=== PATIENT | male | born 1975 | race Caucasian/White ===

== ENCOUNTER 2025-06-03 09:01 | Emergency (ER) | payer OTHER, SELFPAY ==
--- OUTSIDE RECORDS SUMMARY | 2005-05-04 03:20 | XMS_ITS | Continuity of Care Document ---
Author Organization [facility] Address [address] [place] [address] Care Team Providers Care Organ Teacher Name Role Phone Gerardo Anne MD Unavailable [...] Providers Copied on Encounter [facility], [address] [place] [address], [facility], [facility] [place] No Information 200 5 Omid Carrillo. [address] [place] [address], [facility], . tel:[phone] Referring Provider: Ran Solomon, [address] [place] [address], [id number]. tel:[phone] 1930 [facility], [address] [place] [address], [facility], [facility] [place] No Information 5200 5 Juanito Tong. [address] [place] [address], [id number], . tel:[phone] Family History Family Member Type Diagnosis Age At Onset Father Problem (finding) Myocardial infarction 5 0 Other Problem (finding) coronary arterioscleros is Payers Payer name Insurance type Covered republican ID Authoriza tion(s) BS PPO BL [id number] Social History Type Description Quantity Date Captured [...]
[2025-06-03 09:05] VITALS: BP 133/87; PULSE 92; RESP 18; TEMP 36.8; O2SAT 91; BMI 31.5
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
[2025-06-03] MEDS: tetanus-dipt-pertussis 0.5 mL SDV IM (09:34)
[2025-06-03] MEDS: ceFAZolin 1,000 mg SDV 1000 MG IVP (09:36)
[2025-06-03 09:37] VITALS: BP 133/87; PULSE 94; RESP 16; O2SAT 96
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
[2025-06-03 10:40] VITALS: BP 131/80; PULSE 87; O2SAT 96
== END 2025-06-03 10:44 | disposition home or self-care (01) ==
PROVIDERS: Emergency Provider Family Medicine
DX: S81.831A Puncture wound without foreign body, right lower leg, initial encounter (principal); W32.0XXA Accidental handgun discharge, initial encounter
CPT/HCPCS: 73560; 90715; 96374; 99284; J0690

== ENCOUNTER 2025-08-09 09:35 | Emergency (ER) | payer OTHER, SELFPAY ==
[2025-08-09 09:50] VITALS: BP 130/95; PULSE 94; RESP 17; TEMP 36.9; O2SAT 97; BMI 31.5
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
[2025-08-09 11:07] VITALS: RESP 16; O2SAT 96
[2025-08-09] MEDS: morphine 4 mg/mL SDV 1 mL IM (11:07)
[2025-08-09] MEDS: ondansetron 2 mg/ML SDV 2 mL 4 MG IM (11:07)
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
[2025-08-09] MEDS: lidocaine 2% INJ 20 mL INJECTION (11:32)
== END 2025-08-09 12:03 | disposition home or self-care (01) ==
PROVIDERS: Emergency Provider Physician Assistant
DX: S42.202A Unspecified fracture of upper end of left humerus, initial encounter for closed fracture (principal); S02.842A Fracture of lateral orbital wall, left side, initial encounter for closed fracture; S01.112A Laceration without foreign body of left eyelid and periocular area, initial encounter; V27.09XA Other motorcycle driver injured in collision with fixed or stationary object in nontraffic accident, initial encounter
CPT/HCPCS: 12013; 70450; 70486; 72125; 73030; 96372; 99284; J2270; J2405; J9999

== ENCOUNTER 2025-08-25 16:16 | Inpatient (IN) | payer OTHER, SELFPAY ==
--- OUTSIDE RECORDS SUMMARY | 2005-05-04 03:20 | XMS_ITS | Continuity of Care Document ---
Author Organization [facility] Address [address] [place] [address] Care Team Providers Care Fundraising Coordinator Name Role Phone Gerardo Anne MD Unavailable Unavailable Allergies, Adverse Reactions, Alerts Substance Reaction Status Criticality pollen extracts sneezing Active No Informati on Medications Medication Instructions Dosage Effective Dates (start - stop) Status Comments aspirin 81 mg Tab Take one tablet by m outh daily - Active multivitamin Tab Take one tablet by m outh every morning - Active Advance Directives Directive Yes / No Effective Date File Name No Information Encounters Encounter Description Practice Location Reason(s) For Visit Diagnoses Date Provider Providers Copied on Encounter [facility], [address] [place] [address], [facility], [facility] [place] No Information 200 5 Omid Carrillo. [address] [place] [address], [facility], . tel:[phone] Referring Provider: Ran Solomon, [address] [place] [address], [id number]. tel:[phone] [facility], [address] [place] [address], [facility], [facility] [place] No Information 200 5 Juanito Tong. [address] [place] [address], [id number], . tel:[phone] Family History Family Member Type Diagnosis Age At Onset Father Problem (finding) Myocardial infarction 5 0 Other Problem (finding) coronary arterioscleros is Payers Payer name Insurance type Covered libertarian ID Authoriza tion(s) BS PPO BL [id number] Social History Type Description Quantity Date Captured Comments Sex Male Smoking Status No Information Chief Complaint And Reason For Visit No Information Reason For Referral Reason For Referral No Information History Of Present Illness Encounter Date Complaint History Of Prese nt Illness No Information Functional Status Date Functional Assessmen t No Information Instructions Date Instruction Additional Infor mation No Information Assessments Type Assessment Date No Information Patient Care Teams Name Effective Dates (start - stop) Status Members No Information
[2025-08-25 16:25] VITALS: BMI 30.1
[2025-08-25 16:29] VITALS: BP 128/85; PULSE 112; RESP 18; TEMP 36.9; O2SAT 93
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
[2025-08-25 16:49] VITALS: O2SAT 99
[2025-08-25 16:49] LABS: Hematocrit 42.1 % (37-53); Hemoglobin 13.80 g/dL (11.27-16.99); Mean Corpuscular HGB Conc 32.8 g/dL (30-55); Mean Corpuscular Hemoglobin 29.8 pg (27-33); Mean Corpuscular Volume 90.9 fl (82-101); Nucleated Red Blood Cells % 0 %; Platelet Count 466 10^3/cmm (157-399); Red Blood Count 4.63 10^6/uL (3.85-5.65); White Blood Count 10.85 10^3/uL (3.29-11.43)
[2025-08-25 17:04] LABS: PCP Screen Urine Negative (Negative)
[2025-08-25 17:09] LABS: Alanine Aminotransferase 19 U/L (0-41); Albumin Level 3.9 g/dL (3.5-5.2); Alkaline Phosphatase 108 U/L (40-130); Anion Gap 18.2 (5-19); Aspartate Amino Transferase 15 U/L (0-40); Blood Urea Nitrogen 11 mg/dL (6-20); Calcium 9.0 mg/dL (8.5-10.5); Carbon Dioxide 21 mmol/L (22-29); Chloride 103 mmol/L (98-107); Creatinine Clr Calc Pharmacy 113.7522; Globulin 4.0 g/dL (1.3-4.6); Glucose 108 mg/dL (65-115); Osmolality Calculated 286 mOsm/kg (285-295); Potassium 4.2 mmol/L (3.5-5.1); Sodium 138 mmol/L (136-145); Total Protein 7.9 g/dL (6.6-8.7)
[2025-08-25 17:11] LABS: Acetaminophen < 5.0 ug/mL (10-30); Alcohol Level < 10 mg/dL (0-10); Salicylate < 0.3 mg/dL (3-10)
--- NOTE | 2025-08-25 17:35 | PC.NURSE ---
96 hour hold rights read to patient in completion. Patient verbalized understanding.
[2025-08-25 19:30] VITALS: BP 148/79; PULSE 82; RESP 18; TEMP 36.8; O2SAT 97
--- NOTE | 2025-08-25 19:53 | PC.NURSE ---
pt q15's pt on unit at 1905. rounds done appropriately from this time until they were charted at 1944.
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
--- NOTE | 2025-08-25 22:32 | PC.NURSE ---
Pt has a black eye on the left side followed by a sore shoulder ad an abrasion on his left inner thy. 

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
[2025-08-26 06:00] VITALS: BP 128/89; PULSE 78; RESP 17; TEMP 36.9; O2SAT 99
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
[2025-08-26 13:55] VITALS: BP 126/85; PULSE 82; RESP 15; TEMP 37.1; O2SAT 96
--- NOTE | 2025-08-26 16:42 | PC.NURSE ---
Signee had asked an ER nurse in report if pt. was on dialysis. Nurse said she was not aware of it. Signee asked pt. today if he had ever been on dialysis, or if anyone had ever talked to him saying he may need dialysis and pt. stated no he had never been on dialysis or been informed he may need dialysis.
[2025-08-26 20:24] VITALS: BP 119/88; PULSE 105; RESP 18; TEMP 36.7; O2SAT 95
[2025-08-27 06:00] VITALS: BP 132/91; PULSE 78; RESP 16; TEMP 36.3; O2SAT 93
--- NOTE | 2025-08-27 08:29 | P.NPUPN_ITS ---
Subjective NPU 2 Subjective: Patient presented today reporting that nothing is changed. He discussed the fact that he might allow us to speak to one of his sisters but was very clear that he did not want to interrupt anyone. We discussed that his sister would likely know him better than since she can give us some feedback on what she recalls from their lifetime and how this fits into his presentation with people reporting he has schizophrenia but him saying that that is incorrect. He brought up his sisters but he seemed fairly resistant to having anyone talk to them. We discussed the importance of us understanding what his story is and connecting with someone that may be able to give us some narrative of how he got here. He continues to report grandiose persecutory and paranoid thoughts per staff reports and direct observation. He is resistant to a trial of medication but we discussed that a medication like Abilify or Invega might be helpful to his challenges. Mental Status Exam 2 MSE Comments: This is an overweight versus obese white male in the hospital scrubs with limited grooming and poor eye contact. No abnormal movements except for mild psychomotor agitation. Cooperative with exam in mild to moderate distress. Speech was increased rate but not pressured normal volume. Mood described as fine/good but I do not believe I should be or need to be here, affect was mostly euthymic and slightly energetic. Thought process linear to organized. Thought content: Patient did not report suicidal or homicidal ideation, there were no delusions reported but he did appear to have paranoid, persecutory and grandiose delusions, he did not report auditory or visual hallucinations. Attention and concentration were intact and memory was unreliable but none were formally tested. He is alert and oriented x person and place. Insight, judgment and impulse control are impaired. Vitals/I&O/Wt Last Vital Signs Temp 97.4 F L 08/27/25 06:00 Pulse 78 08/27/25 06:00 Resp 16 08/27/25 06:00 BP 132/91 08/27/25 06:00 Pulse Ox 93 08/27/25 06:00 O2 Del Method Room Air 08/27/25 06:00 08/26/25 08/27/25 08/27/25 22:59 06:59 14:59 Intake Total 120 / 360 Balance 120 / 360 Weight last 48 hrs Weight 95.254 kg Data NPU 08/25/25 16:36 08/25/25 16:36 A&P Assessment and plan 1. Acute psychosis: 2. History of schizophrenia: 3. Closed fracture of left proximal humerus: 4. Paranoia: Plan: This is a 49-year-old white male who presents unknown to [facility] psychiatry and reports his only mental health treatment for his account was [facility] the [facility] and he did not feel that this was accurate. He was hospitalized on a 96 hour hold secondary to reports of psychosis and paranoia and concern for him trying to procure a gun. 1. Consider antipsychotic with long-acting injectable. Patient currently not feeling that he is in need of any psychiatric intervention for medication. 2. Encourage individual, group and milieu therapies. 3. Continue every 15 minute checks for safety. 4. Obtain collateral information. 5. Observe against the backdrop of the 96-hour hold. PDMP PDMP Reviewed: Not Reviewed Involuntary Hold Information 2 Hold Status: Legal Status: 96 Hour Hold Date/Time Hold Expires: 08/30/2025 @ 0001 Attestations NPU 2 Medical Necessity Statement*: Inpatient hospitalization is medically necessary and the clinically appropriate intervention at this time. We will monitor/initiate medications and make changes as indicated. Likely length of stay 7-10 days. Coding Level of Care Code Acute Code for Chg Fwd Diagnoses Acute psychosis F23 History of schizophrenia Z86.59 Closed fracture of left proximal humerus S42.A Paranoia F22
[2025-08-27 13:53] VITALS: BP 116/79; PULSE 102; RESP 18; TEMP 36.8; O2SAT 94
[2025-08-27 19:43] VITALS: BP 118/78; PULSE 108; RESP 17; TEMP 36.8; O2SAT 96
[2025-08-28 06:00] VITALS: BP 132/88; PULSE 105; RESP 16; TEMP 36.6; O2SAT 96
--- NOTE | 2025-08-28 09:01 | NUR.SHIFT ---
Pt states that he slept alright last night. When I asked him about anxiety he states that it's nothing he can't deal with and depression he states not much No reports of SI/Hi or hallucinations. No pain reported. He is sitting in the day room writing.
[2025-08-28 14:00] VITALS: BP 128/86; PULSE 92; RESP 17; TEMP 36.7; O2SAT 93
[2025-08-28 14:24] LABS: RPR w(Moniotor) w/REFL Titer REACTIVE (NON-REACTIVE)
--- NOTE | 2025-08-28 18:29 | W.PM.NPUPNS ---
Subjective NPU Subjective: Patient presented today continuing to report that he is fine and there are no issues. He talked about his EMMANUEL and that is something that he has but that is not strange. He continued to deny any issues being of concern and denied any need for medication. We discussed the fact that we could not come to some conclusion or get some collateral information from his sister that we would likely need to keep him longer for which he was not happy with. We discussed concerns that some of the things he is saying may represent some kind of delusion which he said was not true. He denied any need for medication. Mental Status Exam MSE Comments: This is an overweight versus obese white male in the hospital scrubs with limited grooming and poor eye contact. No abnormal movements except for mild psychomotor agitation. Cooperative with exam in mild to moderate distress. Speech was increased rate but not pressured normal volume. Mood described as fine/good but I do not believe I should be or need to be here, affect was mostly euthymic and slightly energetic. Thought process linear to organized. Thought content: Patient did not report suicidal or homicidal ideation, there were no delusions reported but he did appear to have paranoid, persecutory and grandiose delusions, he did not report auditory or visual hallucinations. Attention and concentration were intact and memory was unreliable but none were formally tested. He is alert and oriented x person and place. Insight, judgment and impulse control are impaired. Vitals/I&O/Wt Last Vital Signs Temp 98.1 F 08/28/25 14:00 Pulse 92 08/28/25 14:00 Resp 17 08/28/25 14:00 BP 128/86 08/28/25 14:00 Pulse Ox 93 08/28/25 14:00 O2 Del Method Room Air 08/28/25 06:00 Data NPU 08/25/25 16:36 08/25/25 16:36 A&P Assessment and plan 1. Acute psychosis: 2. History of schizophrenia: 3. Closed fracture of left proximal humerus: 4. Paranoia: Plan: This is a 49-year-old white male who presents unknown to [facility] psychiatry and reports his only mental health treatment for his account was [facility] the [facility] and he did not feel that this was accurate. He was hospitalized on a 96 hour hold secondary to reports of psychosis and paranoia and concern for him trying to procure a gun. 1. Consider antipsychotic with long-acting injectable. Patient currently not feeling that he is in need of any psychiatric intervention for medication. 2. Encourage individual, group and milieu therapies. 3. Continue every 15 minute checks for safety. 4. Obtain collateral information. 5. Observe against the backdrop of the 96-hour hold. File for 21 day hold. PDMP PDMP Reviewed: Not Reviewed Involuntary Hold Information Hold Status: Legal Status: 96 Hour Hold Date/Time Hold Expires: 08/30/2025 @ 0001 Attestations NPU Medical Necessity Statement*: Inpatient hospitalization is medically necessary and the clinically appropriate intervention at this time. We will monitor/initiate medications and make changes as indicated. Likely length of stay 7-10 days. Coding Level of Care Code Acute Code for Chg Fwd Diagnoses Acute psychosis F23 History of schizophrenia Z86.59 Closed fracture of left proximal humerus S42A Paranoia F22
[2025-08-28 20:07] VITALS: BP 135/89; PULSE 91; RESP 18; TEMP 36.5; O2SAT 95
[2025-08-29 06:00] VITALS: BP 133/89; PULSE 80; RESP 16; TEMP 36.5; O2SAT 94
[2025-08-29 13:50] VITALS: BP 127/91; PULSE 89; RESP 18; TEMP 37; O2SAT 97
--- NOTE | 2025-08-29 14:20 | P.NPUPN_ITS ---
Subjective NPU 2 Subjective: Patient presented today reporting that he is doing okay and is going to try to call his sister's so we can get some collateral information. He continues to be absent insight per staff reports and direct conversation denying any issues not understanding why his beliefs about his EMMANUEL and being owed $6 billion is any concern. We discussed the fact that his affidavit suggest some concerns about him maintaining a gun to manage these possible delusions and he reports that he will be safe for discharge. He continues to refuse medication. Mental Status Exam 2 MSE Comments: This is an overweight versus obese white male in the hospital scrubs with limited grooming and poor eye contact. No abnormal movements except for mild psychomotor agitation. Cooperative with exam in mild to moderate distress. Speech was increased rate but not pressured normal volume. Mood described as fine/good but I do not believe I should be or need to be here, affect was mostly euthymic and slightly energetic. Thought process linear to organized. Thought content: Patient did not report suicidal or homicidal ideation, there were no delusions reported but he did appear to have paranoid, persecutory and grandiose delusions, he did not report auditory or visual hallucinations. Attention and concentration were intact and memory was unreliable but none were formally tested. He is alert and oriented x person and place. Insight, judgment and impulse control are impaired. Vitals/I&O/Wt Last Vital Signs Temp 98.6 F 08/29/25 13:50 Pulse 89 08/29/25 13:50 Resp 18 08/29/25 13:50 BP 127/91 08/29/25 13:50 Pulse Ox 97 08/29/25 13:50 O2 Del Method Room Air 08/29/25 13:50 Data NPU 08/25/25 16:36 08/25/25 16:36 A&P Assessment and plan 1. Acute psychosis: 2. History of schizophrenia: 3. Closed fracture of left proximal humerus: 4. Paranoia: Plan: This is a 49-year-old white male who presents unknown to [facility] psychiatry and reports his only mental health treatment for [place] account [place] [facility] and he did not feel that this was accurate. He was hospitalized on a 96 hour hold secondary to reports of psychosis and paranoia and concern for him trying to procure a gun. 1. Consider antipsychotic with long-acting injectable. Patient currently not feeling that he is in need of any psychiatric intervention for medication. 2. Encourage individual, group and milieu therapies. 3. Continue every 15 minute checks for safety. 4. Obtain collateral information. 5. Observe against the backdrop of the 96-hour hold. File for 21 day hold. PDMP PDMP Reviewed: Not Reviewed Involuntary Hold Information 2 Hold Status: Legal Status: 96 Hour Hold Date/Time Hold Expires: 08/30/2025 @ 0001 Attestations NPU 2 Medical Necessity Statement*: Inpatient hospitalization is medically necessary and the clinically appropriate intervention at this time. We will monitor/initiate medications and make changes as indicated. Likely length of stay 7-10 days. Coding Level of Care Code Acute Code for Chg Fwd Diagnoses Acute psychosis F23 History of schizophrenia Z86.59 Closed fracture of left proximal humerus S42.A Paranoia F22
[2025-08-29 20:13] VITALS: BP 131/88; PULSE 93; RESP 18; TEMP 36.7; O2SAT 97
[2025-08-30 06:00] VITALS: BP 125/90; PULSE 83; RESP 18; TEMP 36.4; O2SAT 97
[2025-08-30 14:00] VITALS: BP 120/80; PULSE 88; RESP 18; TEMP 36.4; O2SAT 98
--- NOTE | 2025-08-30 19:41 | P.NPUPN_ITS ---
Subjective NPU 2 Subjective: Patient presented today reporting that he was a little confused. He was holding his 21-day hold paperwork and was reviewing the assertions found in this document circling things and writing off to the side almost like he was a teacher correcting a paper. We had a lengthy discussion about the things that were said and he once again doubled down but his father who had reportedly had showed up in [facility] where he was being treated for this with this hernia. The more he spoke about the issue of a more delusional it appeared as he started identifying that he sees his father popping up at all these random places and we discussed how unlikely images randomly for instance be in a homeless custodial that he happened to go to in a random state. He also tried to backtrack on having the same experience about his brother but then talked about a security individual looking very much like his brother and may be not being able to identify certain issues related to his brother because he feels he has not grieved for him yet. We discussed concerns that these thoughts he is having are delusions but he was adamant that it is all real. He continued to deny any need for medication. Mental Status Exam 2 MSE Comments: This is an overweight versus obese white male in the hospital scrubs with limited grooming and poor eye contact. No abnormal movements except for mild psychomotor agitation. Cooperative with exam in mild to moderate distress. Speech was normal rate and volume. Mood described as fine/good but I do not believe I should be or need to be here, affect was mostly euthymic and slightly subdued. Thought process linear to organized. Thought content: Patient did not report suicidal or homicidal ideation, there were no delusions reported but he did appear to have paranoid, persecutory and grandiose delusions, he did not report auditory or visual hallucinations. Attention and concentration were intact and memory was unreliable but none were formally tested. He is alert and oriented x person and place. Insight, judgment and impulse control are impaired. Vitals/I&O/Wt Last Vital Signs Temp 97.5 F L 08/30/25 14:00 Pulse 88 08/30/25 14:00 Resp 18 08/30/25 14:00 BP 120/80 08/30/25 14:00 Pulse Ox 98 08/30/25 14:00 O2 Del Method Room Air 08/30/25 06:00 Data NPU 08/25/25 16:36 08/25/25 16:36 A&P Assessment and plan 1. Acute psychosis: 2. History of schizophrenia: 3. Closed fracture of left proximal humerus: 4. Paranoia: Plan: This is a 49-year-old white male who presents unknown to [facility] psychiatry and reports his only mental health treatment for his account [place] [facility] and he did not feel that this was accurate. He was hospitalized on a 96 hour hold secondary to reports of psychosis and paranoia and concern for him trying to procure a gun. 1. Consider antipsychotic with long-acting injectable. Patient currently not feeling that he is in need of any psychiatric intervention for medication. 2. Encourage individual, group and milieu therapies. 3. Continue every 15 minute checks for safety. 4. Obtain collateral information. 5. Observe against the backdrop of the 96-hour hold. File for 21 day hold. PDMP PDMP Reviewed: Not Reviewed Involuntary Hold Information 2 Hold Status: Legal Status: 96 Hour Hold Date/Time Hold Expires: 08/30/2025 @ 0001 Attestations NPU 2 Medical Necessity Statement*: Inpatient hospitalization is medically necessary and the clinically appropriate intervention at this time. We will monitor/initiate medications and make changes as indicated. Likely length of stay 7-10 days. Coding Level of Care Code Acute Code for Chg Fwd Diagnoses Acute psychosis F23 History of schizophrenia Z86.59 Closed fracture of left proximal humerus S42. Paranoia F22
[2025-08-30 20:27] VITALS: BP 121/84; PULSE 91; RESP 17; TEMP 36.6; O2SAT 96
--- NOTE | 2025-08-31 03:30 | PC.NURSE ---
Attempted to collect Aptima STD swab but the patient was unable to tolerate the procedure and requested to speak with the Doctor about possible alternative options.
[2025-08-31 05:39] VITALS: BP 126/85; PULSE 80; RESP 17; TEMP 36.5; O2SAT 97
[2025-08-31 13:07] VITALS: BP 120/89; PULSE 97; RESP 21; TEMP 36.3; O2SAT 96
--- NOTE | 2025-08-31 16:12 | P.NPUPN_ITS ---
Subjective NPU 2 Subjective: Patient presented today reporting that things are going okay but he continued to be focused on the plan for the 21-day hold hearing on Tuesday and trying to figure out how to dispute the position that he is psychotic. He reports to be was in contact with both his sisters and they were not interested in having a conversation with the treatment team. He identified that he is still having those experiences with seeing his father places but believing that it is really him. He continues to report that he has no mental illness and does not need any medication. Mental Status Exam 2 MSE Comments: This is an overweight versus obese white male in the hospital scrubs with limited grooming and poor eye contact. No abnormal movements except for mild psychomotor agitation. Cooperative with exam in mild to moderate distress. Speech was normal rate and volume. Mood described as fine/good but I do not believe I should be or need to be here, affect was mostly euthymic and slightly subdued. Thought process linear to organized. Thought content: Patient did not report suicidal or homicidal ideation, there were no delusions reported but he did appear to have paranoid, persecutory and grandiose delusions, he did not report auditory or visual hallucinations. Attention and concentration were intact and memory was unreliable but none were formally tested. He is alert and oriented x person and place. Insight, judgment and impulse control are impaired. Vitals/I&O/Wt Last Vital Signs Temp 97.4 F L 08/31/25 13:07 Pulse 97 08/31/25 13:07 Resp 21 H 08/31/25 13:07 BP 120/89 08/31/25 13:07 Pulse Ox 96 08/31/25 13:07 O2 Del Method Room Air 08/31/25 13:07 08/31/25 08/31/25 08/31/25 06:59 14:59 22:59 Intake Total 240 / 240 Balance 240 / 240 Data NPU 08/25/25 16:36 08/25/25 16:36 A&P Assessment and plan 1. Acute psychosis: 2. History of schizophrenia: 3. Closed fracture of left proximal humerus: 4. Paranoia: Plan: This is a 49-year-old white male who presents unknown to [facility] psychiatry and reports his only mental health treatment for his account [place] [facility] [employer] and he did not feel that this was accurate. He was hospitalized on a 96 hour hold secondary to reports of psychosis and paranoia and concern for him trying to procure a gun. 1. Consider antipsychotic with long-acting injectable. Patient currently not feeling that he is in need of any psychiatric intervention for medication. 2. Encourage individual, group and milieu therapies. 3. Continue every 15 minute checks for safety. 4. Obtain collateral information. 5. Observe against the backdrop of the 96-hour hold. File for 21 day hold. PDMP PDMP Reviewed: Not Reviewed Involuntary Hold Information 2 Hold Status: Legal Status: 96 Hour Hold Date/Time Hold Expires: 08/30/2025 @ 0001 Attestations NPU 2 Medical Necessity Statement*: Inpatient hospitalization is medically necessary and the clinically appropriate intervention at this time. We will monitor/initiate medications and make changes as indicated. Likely length of stay 7-10 days. Coding Level of Care Code Acute Code for Chg Fwd Diagnoses Acute psychosis F23 History of schizophrenia Z86.59 Closed fracture of left proximal humerus S42.A Paranoia F22
[2025-08-31 19:53] VITALS: BP 127/85; PULSE 91; RESP 18; TEMP 36.8; O2SAT 97; BMI 34.4
[2025-09-01 06:00] VITALS: BP 133/92; PULSE 77; RESP 18; TEMP 36.4; O2SAT 95
[2025-09-01 13:53] VITALS: BP 126/88; PULSE 95; RESP 14; TEMP 36.4; O2SAT 96
--- NOTE | 2025-09-01 14:43 | P.NPUPN_ITS ---
Subjective NPU 2 Subjective: Patient presented today reporting that he is fine. He continues to be unchanged per staff reports a direct observation in regards to his belief that he has no psychosis even though he continues to report having [employer] held for 6 billion that is somehow being hidden by someone that continues to believe he has special mcmahon and abilities. He continues to believe he is not in need of medication. Mental Status Exam 2 MSE Comments: This is an overweight versus obese white male in the hospital scrubs with limited grooming and poor eye contact. No abnormal movements except for mild psychomotor agitation. Cooperative with exam in mild to moderate distress. Speech was normal rate and volume. Mood described as fine/good but I do not believe I should be or need to be here, affect was mostly euthymic and slightly subdued. Thought process linear to organized. Thought content: Patient did not report suicidal or homicidal ideation, there were no delusions reported but he did appear to have paranoid, persecutory and grandiose delusions, he did not report auditory or visual hallucinations. Attention and concentration were intact and memory was unreliable but none were formally tested. He is alert and oriented x person and place. Insight, judgment and impulse control are impaired. Vitals/I&O/Wt Last Vital Signs Temp 97.6 F 09/01/25 13:53 Pulse 95 09/01/25 13:53 Resp 14 09/01/25 13:53 BP 126/88 09/01/25 13:53 Pulse Ox 96 09/01/25 13:53 O2 Del Method Room Air 09/01/25 06:00 08/31/25 09/01/25 09/01/25 22:59 06:59 14:59 Intake Total 240 / 480 Balance 240 / 480 Weight last 48 hrs Weight 108.862 kg Data NPU 08/25/25 16:36 08/25/25 16:36 A&P Assessment and plan 1. Acute psychosis: 2. History of schizophrenia: 3. Closed fracture of left proximal humerus: 4. Paranoia: Plan: This is a 49-year-old white male who presents unknown to [facility] psychiatry and reports his only mental health treatment for his account [place] [facility] and he did not feel that this was accurate. He was hospitalized on a 96 hour hold secondary to reports of psychosis and paranoia and concern for him trying to procure a gun. 1. Consider antipsychotic with long-acting injectable. Patient currently not feeling that he is in need of any psychiatric intervention for medication. 2. Encourage individual, group and milieu therapies. 3. Continue every 15 minute checks for safety. 4. Obtain collateral information. 5. Observe against the backdrop of the 96-hour hold. File for 21 day hold. PDMP PDMP Reviewed: Not Reviewed Involuntary Hold Information 2 Hold Status: Legal Status: 96 Hour Hold Date/Time Hold Expires: 08/30/2025 @ 0001 Attestations NPU 2 Medical Necessity Statement*: Inpatient hospitalization is medically necessary and the clinically appropriate intervention at this time. We will monitor/initiate medications and make changes as indicated. Likely length of stay 7-10 days. Coding Level of Care Code Acute Code for g Fwd Diagnoses Acute psychosis F23 History of schizophrenia Z86.59 Closed fracture of left proximal humerus S42.A Paranoia F22
[2025-09-01 20:27] VITALS: BP 125/85; PULSE 95; RESP 17; TEMP 36.6; O2SAT 95
[2025-09-02 06:00] VITALS: BP 123/86; PULSE 80; RESP 18; TEMP 36.5; O2SAT 97
[2025-09-02 14:00] VITALS: BP 134/92; PULSE 91; RESP 16; O2SAT 97
--- NOTE | 2025-09-02 18:01 | P.NPUPN_ITS ---
Subjective NPU 2 Subjective: Patient presented today reporting that he is doing fine. We discussed the 21- day hold hearing process and what he could expect tomorrow morning. We discussed that we would have a discussion prior to hearing but that the clerk analyst transports at that he was not required to go but that the decision he can make. He continued to have mike psychosis for staff report and direct conversation. He continued to deny for medication. Mental Status Exam 2 MSE Comments: This is an overweight versus obese white male in the hospital scrubs with limited grooming and poor eye contact. No abnormal movements except for mild psychomotor agitation. Cooperative with exam in mild to moderate distress. Speech was normal rate and volume. Mood described as fine/good but I do not believe I should be or need to be here, affect was mostly euthymic and slightly subdued. Thought process linear to organized. Thought content: Patient did not report suicidal or homicidal ideation, there were no delusions reported but he did appear to have paranoid, persecutory and grandiose delusions, he did not report auditory or visual hallucinations. Attention and concentration were intact and memory was unreliable but none were formally tested. He is alert and oriented x person and place. Insight, judgment and impulse control are impaired. Vitals/I&O/Wt Last Vital Signs Temp 98.0 F 09/02/25 20:12 Pulse 94 09/02/25 20:12 Resp 18 09/02/25 20:12 BP 123/83 09/02/25 20:12 Pulse Ox 96 09/02/25 20:12 O2 Del Method Room Air 09/02/25 20:12 Data NPU 08/25/25 16:36 08/25/25 16:36 A&P Assessment and plan 1. Acute psychosis: 2. History of schizophrenia: 3. Closed fracture of left proximal humerus: 4. Paranoia: Plan: This is a 49-year-old white male who presents unknown to [facility] psychiatry and reports his only mental health treatment for his account [place] [facility] and he did not feel that this was accurate. He was hospitalized on a 96 hour hold secondary to reports of psychosis and paranoia and concern for him trying to procure a gun. 1. Consider antipsychotic with long-acting injectable. Patient currently not feeling that he is in need of any psychiatric intervention for medication. 2. Encourage individual, group and milieu therapies. 3. Continue every 15 minute checks for safety. 4. Obtain collateral information. 5. Observe against the backdrop of the 96-hour hold. File for 21 day hold. 21 hold hearing tomorrow at 0900. PDMP PDMP Reviewed: Not Reviewed Involuntary Hold Information 2 Hold Status: Legal Status: 96 Hour Hold Date/Time Hold Expires: 08/30/2025 @ 0001 Attestations NPU 2 Medical Necessity Statement*: Inpatient hospitalization is medically necessary and the clinically appropriate intervention at this time. We will monitor/initiate medications and make changes as indicated. Likely length of stay 7-10 days. Coding Level of Care Code Acute Code for Chg Fwd Diagnoses Acute psychosis F23 History of schizophrenia Z86.59 Closed fracture of left proximal humerus S42.A Paranoia F22
[2025-09-02 20:12] VITALS: BP 123/83; PULSE 94; RESP 18; TEMP 36.7; O2SAT 96
[2025-09-03 06:00] VITALS: BP 133/92; PULSE 82; RESP 17; TEMP 36.8; O2SAT 96
--- NOTE | 2025-09-03 08:59 | PC.NURSE ---
out to [address]
--- NOTE | 2025-09-03 09:53 | PC.NURSE ---
back from court
--- NOTE | 2025-09-03 13:33 | P.NPUPN_ITS ---
Subjective NPU 2 Subjective: Patient presents today reporting that he is doing okay. He went to his 21-day hold hearing and he was placed on a 21-day hold. He continues to not understand the situation and why the bankruptcy judge ruled against him. We had a discussion of the risks, benefits and alternatives of a trial of Abilify and he understood and agreed to proceed as documented in this note. We discussed the fact that there was a mandate from the court that would allow us to do forced medication. But we discussed that him taking the medication would give him the best chance of getting out her sooner. He continued to try to adjudicate the issues from the court hearing. Mental Status Exam 2 MSE Comments: This is an overweight versus obese white male in the hospital scrubs with limited grooming and poor eye contact. No abnormal movements except for mild psychomotor agitation. Cooperative with exam in mild to moderate distress. Speech was normal rate and volume. Mood described as fine/good but I do not believe I should be or need to be here, affect was mostly euthymic and slightly subdued. Thought process linear to organized. Thought content: Patient did not report suicidal or homicidal ideation, there were no delusions reported but he did appear to have paranoid, persecutory and grandiose delusions, he did not report auditory or visual hallucinations. Attention and concentration were intact and memory was unreliable but none were formally tested. He is alert and oriented x person and place. Insight, judgment and impulse control are impaired. Vitals/I&O/Wt Last Vital Signs Temp 98.3 F 09/03/25 06:00 Pulse 82 09/03/25 06:00 Resp 17 09/03/25 06:00 BP 133/92 09/03/25 06:00 Pulse Ox 96 09/03/25 06:00 O2 Del Method Room Air 09/03/25 06:00 Data NPU 08/25/25 16:36 08/25/25 16:36 A&P Assessment and plan 1. Acute psychosis: 2. History of schizophrenia: 3. Closed fracture of left proximal humerus: 4. Paranoia: Plan: This is a 49-year-old white male who presents unknown to [facility] psychiatry and reports his only mental health treatment for his account [place] [facility] [employer] and he did not feel that this was accurate. He was hospitalized on a 96 hour hold secondary to reports of psychosis and paranoia and concern for him trying to procure a gun. 1. Consider antipsychotic with long-acting injectable. Patient currently not feeling that he is in need of any psychiatric intervention for medication. Patient agreed to a trial of Abilify 10 mg p.o. daily 2. Encourage individual, group and milieu therapies. 3. Continue every 15 minute checks for safety. 4. Obtain collateral information. 5. Observe against the backdrop of the 96-hour hold. File for 21 day hold. 21 hold hearing tomorrow at 0900. Patient placed on 21-day hold. PDMP PDMP Reviewed: Not Reviewed Involuntary Hold Information 2 Hold Status: Legal Status: 96 Hour Hold Date/Time Hold Expires: 08/30/2025 @ 0001 Attestations NPU 2 Medical Necessity Statement*: Inpatient hospitalization is medically necessary and the clinically appropriate intervention at this time. We will monitor/initiate medications and make changes as indicated. Likely length of stay 7-10 days. Coding Level of Care Code Acute Code for Chg Fwd Diagnoses Acute psychosis F23 History of schizophrenia Z86.59 Closed fracture of left proximal humerus S42.A Paranoia F22
[2025-09-03 13:54] VITALS: BP 130/66; PULSE 102; RESP 18; TEMP 36.8; O2SAT 96
--- NOTE | 2025-09-03 14:33 | PC.NURSE ---
Had court today for a 21 day hold.
--- NOTE | 2025-09-03 15:21 | PC.NURSE ---
Dr. Santoro gave verbal order to give Abilify 10mg PO QD.
[2025-09-03 19:54] VITALS: BP 121/77; PULSE 93; RESP 18; O2SAT 96
[2025-09-04 06:00] VITALS: BP 129/87; PULSE 87; RESP 17; TEMP 36.3; O2SAT 95
--- NOTE | 2025-09-04 10:25 | P.NPUPN_ITS ---
Subjective NPU 2 Subjective: Patient presented today reporting that things are going poorly. He was met during an argument with the nursing staff as he accused them of giving him something other than Abilify. He was cursing at this job specification writer stating that Abilify does not come in orange and that he was just given rat poison and some other substances instead of Abilify. This job specification writer searched the Internet in front of him and explained to him the hospitals process for managing medications and determining if something is the pill of question. He was shown on the Internet that different versions of Abilify do in fact come in an orange color. He was able to calm down a little bit after this conversation and was not noted to have any other outburst later. He had reported that it made him feel a certain way as why he was arguing that we had given him a poison or something. Mental Status Exam 2 MSE Comments: This is an overweight versus obese white male in the hospital scrubs with limited grooming and poor eye contact. No abnormal movements except for mild psychomotor agitation. Cooperative with exam in mild to moderate distress. Speech was normal rate and volume. Mood described as fine/good but I do not believe I should be or need to be here, affect was mostly euthymic and slightly subdued. Thought process linear to organized. Thought content: Patient did not report suicidal or homicidal ideation, there were no delusions reported but he did appear to have paranoid, persecutory and grandiose delusions, he did not report auditory or visual hallucinations. Attention and concentration were intact and memory was unreliable but none were formally tested. He is alert and oriented x person and place. Insight, judgment and impulse control are impaired. Vitals/I&O/Wt Last Vital Signs Temp 97.3 F L 09/04/25 06:00 Pulse 87 09/04/25 06:00 Resp 17 09/04/25 06:00 BP 129/87 09/04/25 06:00 Pulse Ox 95 09/04/25 06:00 O2 Del Method Room Air 09/04/25 06:00 Data NPU 08/25/25 16:36 08/25/25 16:36 A&P Assessment and plan 1. Acute psychosis: 2. History of schizophrenia: 3. Closed fracture of left proximal humerus: 4. Paranoia: Plan: This is a 49-year-old white male who presents unknown to [facility] psychiatry and reports his only mental health treatment for his account [place] [facility] and he did not feel that this was accurate. He was hospitalized on a 96 hour hold secondary to reports of psychosis and paranoia and concern for him trying to procure a gun. 1. Consider antipsychotic with long-acting injectable. Patient currently not feeling that he is in need of any psychiatric intervention for medication. Patient agreed to a trial of Abilify 10 mg p.o. daily. Started Abilify 10 mg p.o. daily. 2. Encourage individual, group and milieu therapies. 3. Continue every 15 minute checks for safety. 4. Obtain collateral information. 5. Observe against the backdrop of the 96-hour hold. File for 21 day hold. Patient placed on 21-day hold. PDMP PDMP Reviewed: Not Reviewed Involuntary Hold Information 2 Hold Status: Legal Status: 21 Day Hold Date/Time Hold Expires: 09/24/2025 Attestations NPU 2 Medical Necessity Statement*: Inpatient hospitalization is medically necessary and the clinically appropriate intervention at this time. We will monitor/initiate medications and make changes as indicated. Likely length of stay 7-10 days. Coding Level of Care Code Acute Code for Chg Fwd Diagnoses Acute psychosis F23 History of schizophrenia Z86.59 Closed fracture of left proximal humerus S42.A Paranoia F22
[2025-09-04 14:00] VITALS: BP 137/90; PULSE 98; RESP 15; TEMP 36.3; O2SAT 96
[2025-09-04 21:57] VITALS: BP 133/84; PULSE 107; RESP 18; TEMP 36.7; O2SAT 96
[2025-09-05 06:00] VITALS: BP 135/83; PULSE 102; RESP 18; TEMP 36.3; O2SAT 95
--- NOTE | 2025-09-05 11:44 | PC.NURSE ---
Dr. Santoro v/o for Abilify 400mg IM to be given today.
[2025-09-05 13:58] VITALS: BP 126/87; PULSE 110; RESP 18; TEMP 37.1; O2SAT 97
--- NOTE | 2025-09-05 14:01 | P.NPUPN_ITS ---
Subjective NPU 2 Subjective: Patient presented today reporting that things are okay. He reports that he got sick from the Abilify but did not identify anyone who noticed the symptoms of his sickness and we discussed him needing to take an antipsychotic and so we discussed the risks, benefits and alternatives of a trial of Invega and he understood and agreed to proceed as is documented in his note. Mental Status Exam 2 MSE Comments: This is an overweight versus obese white male in the hospital scrubs with limited grooming and poor eye contact. No abnormal movements except for mild psychomotor agitation. Cooperative with exam in mild to moderate distress. Speech was normal rate and volume. Mood described as fine/good but I do not believe I should be or need to be here, affect was mostly euthymic and slightly subdued. Thought process linear to organized. Thought content: Patient did not report suicidal or homicidal ideation, there were no delusions reported but he did appear to have paranoid, persecutory and grandiose delusions, he did not report auditory or visual hallucinations. Attention and concentration were intact and memory was unreliable but none were formally tested. He is alert and oriented x person and place. Insight, judgment and impulse control are impaired. Vitals/I&O/Wt Last Vital Signs Temp 98.7 F 09/05/25 13:58 Pulse 110 H 09/05/25 13:58 Resp 18 09/05/25 13:58 BP 126/87 09/05/25 13:58 Pulse Ox 97 09/05/25 13:58 O2 Del Method Room Air 09/05/25 06:00 Data NPU 08/25/25 16:36 08/25/25 16:36 A&P Assessment and plan 1. Acute psychosis: 2. History of schizophrenia: 3. Closed fracture of left proximal humerus: 4. Paranoia: Plan: This is a 49-year-old white male who presents unknown to [facility] psychiatry and reports his only mental health treatment for his account [place] [facility] and he did not feel that this was accurate. He was hospitalized on a 96 hour hold secondary to reports of psychosis and paranoia and concern for him trying to procure a gun. 1. Consider antipsychotic with long-acting injectable. Patient currently not feeling that he is in need of any psychiatric intervention for medication. Patient agreed to a trial of Abilify 10 mg p.o. daily. Started Abilify 10 mg p.o. daily. Patient identified that the Abilify made him sick which this was not noted by anyone but we agreed to try Invega 3 mg this evening and 6 mg tomorrow instead. 2. Encourage individual, group and milieu therapies. 3. Continue every 15 minute checks for safety. 4. Obtain collateral information. 5. Observe against the backdrop of the 96-hour hold. File for 21 day hold. Patient placed on 21-day hold. PDMP PDMP Reviewed: Not Reviewed Involuntary Hold Information 2 Hold Status: Legal Status: 21 Day Hold Date/Time Hold Expires: 09/24/2025 Attestations NPU 2 Medical Necessity Statement*: Inpatient hospitalization is medically necessary and the clinically appropriate intervention at this time. We will monitor/initiate medications and make changes as indicated. Likely length of stay 7-10 days. Coding Level of Care Code Acute Code for Chg Fwd Diagnoses Acute psychosis F23 History of schizophrenia Z86.59 Closed fracture of left proximal humerus S42.A Paranoia F22
[2025-09-05 20:26] VITALS: BP 114/80; PULSE 99; RESP 18; TEMP 36.8; O2SAT 94
[2025-09-06 06:00] VITALS: BP 126/86; PULSE 95; RESP 17; TEMP 37.1; O2SAT 96
[2025-09-06] MEDS: paliperidone ER 6 mg Tablet PO (08:55)
[2025-09-06 14:00] VITALS: BP 114/76; PULSE 110; RESP 18; TEMP 36.8; O2SAT 96
--- NOTE | 2025-09-06 15:13 | W.PM.NPUPNS ---
Subjective NPU Subjective: Patient presented today reporting things are going all right. He endorsed tolerating the Invega and that is his much better than the other medication. Which was the Abilify. He discussed some tiredness which we identified if it was from the Invega would likely resolve over the next 3 days or so but we discussed the risks, benefits and alternatives of switching the medication to bedtime and he understood and agreed to proceed as documented in this note. He denied any other side effects from medication. Mental Status Exam MSE Comments: This is an overweight versus obese white male in the hospital scrubs with limited grooming and poor eye contact. No abnormal movements except for mild psychomotor agitation. Cooperative with exam in mild to moderate distress. Speech was normal rate and volume. Mood described as fine/good but I do not believe I should be or need to be here, affect was mostly euthymic and slightly subdued. Thought process linear to organized. Thought content: Patient did not report suicidal or homicidal ideation, there were no delusions reported but he did appear to have paranoid, persecutory and grandiose delusions, he did not report auditory or visual hallucinations. Attention and concentration were intact and memory was unreliable but none were formally tested. He is alert and oriented x person and place. Insight, judgment and impulse control are impaired. Vitals/I&O/Wt Last Vital Signs Temp 98.2 F 09/06/25 14:00 Pulse 110 H 09/06/25 14:00 Resp 18 09/06/25 14:00 BP 114/76 09/06/25 14:00 Pulse Ox 96 09/06/25 14:00 O2 Del Method Room Air 09/06/25 06:00 Data NPU 08/25/25 16:36 08/25/25 16:36 A&P Assessment and plan 1. Acute psychosis: 2. History of schizophrenia: 3. Closed fracture of left proximal humerus: 4. Paranoia: Plan: This is a 49-year-old white male who presents unknown to [facility] psychiatry and reports his only mental health treatment for his account [place] [facility] and he did not feel that this was accurate. He was hospitalized on a 96 hour hold secondary to reports of psychosis and paranoia and concern for him trying to procure a gun. 1. Consider antipsychotic with long-acting injectable. Patient currently not feeling that he is in need of any psychiatric intervention for medication. Patient agreed to a trial of Abilify 10 mg p.o. daily. Started Abilify 10 mg p.o. daily. Patient identified that the Abilify made him sick which this was not noted by anyone but we agreed to try Invega 3 mg this evening and 6 mg tomorrow instead. Patient tolerating increase in Invega to 6 mg but reporting some tiredness. Will switch to bedtime dosing. 2. Encourage individual, group and milieu therapies. 3. Continue every 15 minute checks for safety. 4. Obtain collateral information. 5. Observe against the backdrop of the 96-hour hold. File for 21 day hold. Patient placed on 21-day hold. PDMP PDMP Reviewed: Not Reviewed Involuntary Hold Information Hold Status: Legal Status: 21 Day Hold Date/Time Hold Expires: 09/24/2025 Attestations NPU Medical Necessity Statement*: Inpatient hospitalization is medically necessary and the clinically appropriate intervention at this time. We will monitor/initiate medications and make changes as indicated. Likely length of stay 7-10 days. Coding Level of Care Code Acute Code for Chg Fwd Diagnoses Acute psychosis F23 History of schizophrenia Z86.59 Closed fracture of left proximal humerus S42.202A Paranoia F22
[2025-09-06 20:43] VITALS: BP 121/80; PULSE 117; RESP 18; TEMP 36.7; O2SAT 96
[2025-09-07 06:39] VITALS: BP 121/82; PULSE 109; TEMP 36.4; O2SAT 95
--- NOTE | 2025-09-07 08:51 | W.PM.NPUPNS ---
Subjective NPU Subjective: Patient presented today reporting that things are going well. He reports that he feels less tired not having had the medication this morning and was pleased with the idea of having it at night. He seems to be less resistant to taking his medication and we started with the Abilify and he did not express any concerns about the medication. He denied any side effects outside of the concern with sleepiness. We discussed continuing in the past and evaluating for improvement we can start looking towards discharge. He denies any side effects of medication. Mental Status Exam MSE Comments: This is an overweight versus obese white male in the hospital scrubs with limited grooming and poor eye contact. No abnormal movements except for mild psychomotor agitation. Cooperative with exam in mild to moderate distress. Speech was normal rate and volume. Mood described as fine/good but I do not believe I should be or need to be here, affect was mostly euthymic and slightly subdued. Thought process linear to organized. Thought content: Patient did not report suicidal or homicidal ideation, there were no delusions reported but he did appear to have paranoid, persecutory and grandiose delusions, he did not report auditory or visual hallucinations. Attention and concentration were intact and memory was unreliable but none were formally tested. He is alert and oriented x person and place. Insight, judgment and impulse control are impaired. Vitals/I&O/Wt Last Vital Signs Temp 97.6 F 09/07/25 06:39 Pulse 109 H 09/07/25 06:39 Resp 18 09/06/25 20:43 BP 121/82 09/07/25 06:39 Pulse Ox 95 09/07/25 06:39 O2 Del Method Room Air 09/07/25 06:39 Data NPU 08/25/25 16:36 08/25/25 16:36 A&P Assessment and plan 1. Acute psychosis: 2. History of schizophrenia: 3. Closed fracture of left proximal humerus: 4. Paranoia: Plan: This is a 49-year-old white male who presents unknown to [facility] psychiatry and reports his only mental health treatment for his account [place] [facility] and he did not feel that this was accurate. He was hospitalized on a 96 hour hold secondary to reports of psychosis and paranoia and concern for him trying to procure a gun. 1. Consider antipsychotic with long-acting injectable. Patient currently not feeling that he is in need of any psychiatric intervention for medication. Patient agreed to a trial of Abilify 10 mg p.o. daily. Started Abilify 10 mg p.o. daily. Patient identified that the Abilify made him sick which this was not noted by anyone but we agreed to try Invega 3 mg this evening and 6 mg tomorrow instead. Patient tolerating increase in Invega to 6 mg but reporting some tiredness. Will switch to bedtime dosing. 2. Encourage individual, group and milieu therapies. 3. Continue every 15 minute checks for safety. 4. Obtain collateral information. 5. Observe against the backdrop of the 96-hour hold. File for 21 day hold. Patient placed on 21-day hold. PDMP PDMP Reviewed: Not Reviewed Involuntary Hold Information Hold Status: Legal Status: 21 Day Hold Date/Time Hold Expires: 09/24/2025 Attestations NPU Medical Necessity Statement*: Inpatient hospitalization is medically necessary and the clinically appropriate intervention at this time. We will monitor/initiate medications and make changes as indicated. Likely length of stay 7-10 days. Coding Level of Care Code Acute Code for Chg Fwd Diagnoses Acute psychosis F23 History of schizophrenia Z86.59 Closed fracture of left proximal humerus S42.A Paranoia F22
[2025-09-07 12:12] VITALS: BP 124/82; PULSE 119; RESP 21; TEMP 36.6; O2SAT 94
[2025-09-07 19:44] VITALS: BP 129/80; PULSE 109; RESP 17; TEMP 36.9; O2SAT 96
[2025-09-07 20:17] VITALS: BMI 33.1
[2025-09-07] MEDS: paliperidone ER 6 mg Tablet PO (20:17)
[2025-09-08 06:00] VITALS: BP 118/84; PULSE 91; RESP 17; TEMP 37.1; O2SAT 94
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
[2025-09-08 14:00] VITALS: BP 120/83; PULSE 101; RESP 18; TEMP 36.7; O2SAT 95
[2025-09-08 20:21] VITALS: BP 124/83; PULSE 95; RESP 18; TEMP 36.6; O2SAT 94
[2025-09-08] MEDS: paliperidone ER 6 mg Tablet PO (20:36)
[2025-09-09 06:00] VITALS: BP 118/82; PULSE 99; RESP 18; TEMP 37.2; O2SAT 95
[2025-09-09 14:00] VITALS: BP 132/86; PULSE 101; RESP 15; TEMP 36.5; O2SAT 97
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
[2025-09-09 20:09] VITALS: BP 119/80; PULSE 101; RESP 17; TEMP 37.1; O2SAT 95
[2025-09-09] MEDS: paliperidone ER 6 mg Tablet PO (20:38)
[2025-09-10 06:00] VITALS: BP 124/85; PULSE 100; RESP 16; TEMP 36.7; O2SAT 97
[2025-09-10 14:00] VITALS: BP 134/86; PULSE 119; RESP 17; TEMP 36.6; O2SAT 94
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
[2025-09-10 19:21] VITALS: BP 130/86; PULSE 84; RESP 18; TEMP 36.7; O2SAT 96
[2025-09-10] MEDS: paliperidone ER 6 mg Tablet PO (20:15)
[2025-09-11 06:00] VITALS: BP 90/60; PULSE 85; RESP 17; TEMP 36.4; O2SAT 96
[2025-09-11 14:00] VITALS: BP 112/70; PULSE 100; RESP 17; TEMP 37; O2SAT 94
[2025-09-11] MEDS: divalproex ER 500 mg Tablet (24H) PO (14:21)
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
[2025-09-11 21:50] VITALS: BP 131/73; PULSE 105; RESP 18; TEMP 36.4; O2SAT 96
[2025-09-11] MEDS: paliperidone ER 6 mg Tablet PO (22:01)
[2025-09-12 06:00] VITALS: BP 90/60; PULSE 85; RESP 18; TEMP 37; O2SAT 94
[2025-09-12] MEDS: divalproex ER 500 mg Tablet (24H) PO (08:52)
[2025-09-12 14:00] VITALS: RESP 20
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
[2025-09-12 20:24] VITALS: BP 139/79; PULSE 130; RESP 18; TEMP 37.1; O2SAT 97
[2025-09-12 20:58] VITALS: PULSE 110
--- NOTE | 2025-09-12 23:17 | PC.NURSE ---
pt fracture pt was inquiring about follow up for his shoulder over the past few days. will message his policy adviser to follow up.
[2025-09-13 06:00] VITALS: BP 118/77; PULSE 99; RESP 18; TEMP 36.4; O2SAT 96
[2025-09-13] MEDS: divalproex ER 500 mg Tablet (24H) PO (08:46)
--- NOTE | 2025-09-13 11:49 | PC.NURSE ---
Dr. Rosario let know pt. came in with a fx shoulder on admission and has not received any PT services. agreed to consult with medical doctor for possible PT to eval and tx.
[2025-09-13 14:00] VITALS: BP 120/77; PULSE 98; RESP 18
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
--- NOTE | 2025-09-13 15:20 | PC.NURSE ---
Dr. Rosario gave verbal order to put in an order for PT to eval and tx d/t recent left shoulder fx.
--- NOTE | 2025-09-13 15:33 | XRR_ITS ---
PROCEDURE INFORMATION: Exam: XR Left Humerus Exam date and time: 09/13/2025 5:18 PM Age: 49 years old Clinical indication: Left humerus fracture TECHNIQUE: Imaging protocol: Radiologic exam of the left humerus. Views: 2 or more views. COMPARISON: Shoulder radiographs 08/09/2025 FINDINGS: Bones/joints: Partial progressive healing of comminuted proximal humerus fracture. Unchanged alignment. No new fractures. Soft tissues: Normal. XR/[place] [id number] IMPRESSION: Partial progressive healing of comminuted proximal humerus fracture in unchanged alignment.
--- NOTE | 2025-09-13 15:34 | PC.NURSE ---
Dr. Rosario gave verbal order for XR of left humerus and OT to consult.
--- NOTE | 2025-09-13 15:43 | PC.OT ---
OT EVALUATION ORDERS RECEIVED; P.T. HAD ALSO RECEIVED ORDERS AND SPOKE WITH NURSING. RECOMMEND X-RAY LAST X-RAY WAS OVER 1 MONTH AGO AND ORTHOPEDIC CONSULT BEFORE THERAPY WILL ADDRESS. OT WILL ADDRESS ISSUE ON TUESDAY AFTER X-RAY AND ORTHOPEDIC CONSULT HAVE BEEN OBTAINED
[2025-09-13 19:54] VITALS: BP 114/72; PULSE 110; RESP 16; TEMP 36.7; O2SAT 98
[2025-09-13] MEDS: paliperidone ER 6 mg Tablet PO (20:04)
[2025-09-14 06:00] VITALS: BP 119/83; PULSE 96; RESP 18; TEMP 36.3; O2SAT 98
[2025-09-14] MEDS: divalproex ER 500 mg Tablet (24H) PO (08:19)
--- NOTE | 2025-09-14 11:07 | P.NPUPN_ITS ---
Subjective NPU 2 Subjective: 49-year-old male currently on a 21-day h old admitted with psychosis. The patient had reported less pain today in his left arm. He had continued to report that he had special abilities and could somehow speak to others through his mind. He had reported that he had not felt any side effects from his current medications. He had reported that he still felt that his father was alive but stated that he was not worrying about it as much. The patient reports that he still is owed significant amount of money for his [employer] and stated that others were trying to somehow keep him from obtaining the stock. Mental Status Exam 2 MSE Comments: This is an overweight versus obese white male in the hospital scrubs with limited grooming and fair eye contact. There was some evidence of slow gait but no shuffling gait was appreciated with no psychomotor slowing today. He was cooperative with exam in mild distress. His speech was normal in rate and volume. Mood described as okay. His affect was blunted today. Thought process was linear and organized. Thought content: Patient did not report suicidal or homicidal ideation, There was continued evidence of delusional thinking and he did not appear to be responding to internal stimuli. There was evidence of bizarre delusions.There remained significant ideas of reference. Attention and concentration were intact and memory was unreliable but none were formally tested. He is alert and oriented x person and place. Insight was poor. His judgment was limited. His impulse control appeared better. Vitals/I&O/Wt Last Vital Signs Temp 97.4 F L 09/14/25 06:00 Pulse 96 09/14/25 06:00 Resp 18 09/14/25 06:00 BP 119/83 09/14/25 06:00 Pulse Ox 98 09/14/25 06:00 O2 Del Method Room Air 09/14/25 06:00 Data NPU 08/25/25 16:36 08/25/25 16:36 A&P Assessment and plan 1. Schizophrenia, acute: 2. Acute psychosis: 3. Closed fracture of left proximal humerus: 4. Paranoia: Plan: This is a 49-year-old white male who presents unknown to [facility] psychiatry and reports his only mental health treatment for his account [place] [facility] and he did not feel that this was accurate. He was hospitalized on a 96 hour hold secondary to reports of psychosis and paranoia and concern for him trying to procure a gun. 1. Continue Invega 6mg daily (patient already received Abilify maintena IM earlier this stay). Increase Depakote ER 750mg in am as mood stabilizer. Continue cogentin 1mg bid. 2. Encourage individual, group and milieu therapies. 3. Continue every 15 minute checks for safety. 4. Obtain collateral information. 5. Patient placed on 21-day hold. 6. PT evaluation pending-would like to encourage basic exercises for shoulder. PDMP PDMP Reviewed: Not Reviewed Involuntary Hold Information 2 Hold Status: Legal Status: 21 Day Hold Date/Time Hold Expires: 09/24/2025 Attestations NPU 2 Medical Necessity Statement*: Inpatient hospitalization is medically necessary and the clinically appropriate intervention at this time. We will monitor/initiate medications and make changes as indicated. The patient 's likely length of stay 5-7 days. Coding Level of Care Code Acute Code for [facility] Fwd Diagnoses Schizophrenia, acute F23 Acute psychosis F23 Closed fracture of left proximal humerus S42.A Paranoia F22
[2025-09-14 13:30] VITALS: BP 114/74; PULSE 116; RESP 16; TEMP 36.9; O2SAT 94
[2025-09-14] MEDS: paliperidone ER 6 mg Tablet PO (20:03)
[2025-09-14 20:15] VITALS: BP 132/85; PULSE 97; RESP 18; TEMP 36.7; O2SAT 96
[2025-09-15 06:00] VITALS: BP 132/94; PULSE 86; RESP 15; TEMP 36.5; O2SAT 97
[2025-09-15] MEDS: divalproex ER 250 mg Tablet (24H) 750 MG PO (08:30)
--- NOTE | 2025-09-15 12:58 | P.NPUPN_ITS ---
Subjective NPU 2 Subjective: 49-year-old male currently on a 21-day h old admitted with psychosis. Patient reported that he had plans on taking his recreational vehicle and moving to the [facility] area. He had reported that he was feeling better. He reported no side effects from his Depakote. Patient reported that his sleep was better. Staff notes the patient appeared more redirectable on the milieu and remained compliant with his medication regimen. He had continued to make some plans about obtaining his stock as he had stated that he would be rich from the millions that he was owed by the [employer]. He reported no thoughts of trying to procur a gun. Mental Status Exam 2 MSE Comments: This is an overweight versus obese white male in the hospital scrubs with limited grooming and fair eye contact. There was some evidence of slow gait but no shuffling gait was appreciated with no psychomotor slowing today. He was cooperative with exam in mild distress. His speech was normal in rate and volume. Mood described as okay. His affect was blunted today. Thought process was linear and organized. Thought content: Patient did not report suicidal or homicidal ideation, There was continued evidence of delusional thinking and he did not appear to be responding to internal stimuli. There remained significant ideas of reference. Attention and concentration were intact and memory was unreliable but none were formally tested. He is alert and oriented x person and place and time. Insight was poor. His judgment was limited. His impulse control appeared better. Vitals/I&O/Wt Last Vital Signs Temp 97.7 F 09/15/25 06:00 Pulse 86 09/15/25 06:00 Resp 15 09/15/25 06:00 BP 132/94 09/15/25 06:00 Pulse Ox 97 09/15/25 06:00 O2 Del Method Room Air 09/14/25 20:15 Weight last 48 hrs Weight 107.501 kg Data NPU 08/25/25 16:36 08/25/25 16:36 A&P Assessment and plan 1. Schizophrenia, acute: 2. Acute psychosis: 3. Closed fracture of left proximal humerus: 4. Paranoia: Plan: This is a 49-year-old white male who presents unknown to [facility] psychiatry and reports his only mental health treatment for his account [place] [facility] and he did not feel that this was accurate. He was hospitalized on a 96 hour hold secondary to reports of psychosis and paranoia and concern for him trying to procure a gun. 1. Continue Invega 6mg daily (patient already received Abilify maintena IM earlier this stay). Increase Depakote ER 750mg in am as mood stabilizer. Reduce cogentin to .5mg bid. 2. Encourage individual, group and milieu therapies. 3. Continue every 15 minute checks for safety. 4. Obtain collateral information. 5. Patient placed on 21-day hold. 6. Is patient receiving PT? PDMP PDMP Reviewed: Not Reviewed Involuntary Hold Information 2 Hold Status: Legal Status: 21 Day Hold Date/Time Hold Expires: 09/24/2025 Attestations NPU 2 Medical Necessity Statement*: Inpatient hospitalization is medically necessary and the clinically appropriate intervention at this time. We will monitor/initiate medications and make changes as indicated. The patient 's likely length of stay 5-7 days. Coding Level of Care Code Acute Code for [facility] Fwd Diagnoses Schizophrenia, acute F23 Acute psychosis F23 Closed fracture of left proximal humerus S42.A Paranoia F22
[2025-09-15 13:37] VITALS: BP 133/92; PULSE 102; RESP 16; TEMP 36.8; O2SAT 96
[2025-09-15 20:52] VITALS: BP 116/84; PULSE 117; RESP 22; TEMP 36.7; O2SAT 98
[2025-09-16 06:00] VITALS: BP 122/74; PULSE 103; RESP 22; TEMP 36.4; O2SAT 96
[2025-09-16] MEDS: divalproex ER 250 mg Tablet (24H) 750 MG PO (08:47)
[2025-09-16 14:00] VITALS: BP 146/93; PULSE 109; RESP 16; TEMP 36.5; O2SAT 97
--- NOTE | 2025-09-16 14:48 | W.PM.NPUPNS ---
Subjective NPU Subjective: 49-year-old male currently on a 21-day hold admitted with psychosis with history of schizophrenia. The patient had reported that he was doing better. He continued to report that he now was planning on going to [place] to continue to live in his . He had reported that he was feeling okay. He had requested that this screenplay writer provide him more information on details about wanting to reverse of varicocele that he had tied together stating that he wanted to untie it secondary to scientologist purposes. There was no side effects reported from his medication regimen. The patient had denied having any thoughts of hurting himself or others. Mental Status Exam MSE Comments: This is an overweight versus obese white male in the hospital scrubs with limited grooming and fair eye contact. There was still some mild psychomotor slowing today. He was cooperative with exam in mild distress. His speech was normal in rate and volume. Mood described as okay. His affect was blunted today. Thought process was linear and organized. Thought content: Patient did not report suicidal or homicidal ideation. There was continued evidence of delusional thinking and he did not appear to be responding to internal stimuli. There remained significant ideas of reference. Attention and concentration were intact and memory was unreliable but none were formally tested. He is alert and oriented x person and place and time. Insight was poor. His judgment was limited. His impulse control appeared better. Vitals/I&O/Wt Last Vital Signs Temp 97.7 F 09/16/25 14:00 Pulse 109 H 09/16/25 14:00 Resp 16 09/16/25 14:00 BP 146/93 09/16/25 14:00 Pulse Ox 97 09/16/25 14:00 O2 Del Method Room Air 09/16/25 14:00 Weight last 48 hrs Weight 107.501 kg Data NPU 08/25/25 16:36 08/25/25 16:36 A&P Assessment and plan 1. Schizophrenia, acute: 2. Acute psychosis: 3. Closed fracture of left proximal humerus: 4. Paranoia: Plan: This is a 49-year-old white male who presents unknown to [facility] psychiatry and reports his only mental health treatment for his account [place] [facility] and he did not feel that this was accurate. He was hospitalized on a 96 hour hold secondary to reports of psychosis and paranoia and concern for him trying to procure a gun. 1. Continue Invega 6mg daily with plan for Invega sustenna 234mg IM today. Continue Depakote ER 750mg in am as mood stabilizer. Reduce cogentin to .5mg bid. 2. Encourage individual, group and milieu therapies. 3. Continue every 15 minute checks for safety. 4. Obtain collateral information. 5. Patient placed on 21-day hold. 6. Is patient receiving PT? PDMP PDMP Reviewed: Not Reviewed Involuntary Hold Information Hold Status: Legal Status: 21 Day Hold Date/Time Hold Expires: 09/24/2025 Attestations NPU Medical Necessity Statement*: Inpatient hospitalization is medically necessary and the clinically appropriate intervention at this time. We will monitor/initiate medications and make changes as indicated. The patient 's likely length of stay 5-7 days. Coding Level of Care Code Acute Code for [facility] Fwd Diagnoses Schizophrenia, acute F23 Acute psychosis F23 Closed fracture of left proximal humerus S42.A Paranoia F22
--- NOTE | 2025-09-16 14:56 | PC.NURSE ---
Dr. Rosario gave verbal order to put in PT to eval and treat order. Order entered on TAR.
--- NOTE | 2025-09-16 14:59 | PC.PT ---
PT continues to hold evaluation until orthopedic consult is completed.
[2025-09-16] MEDS: paliperidone palmitate 234 mg Syringe IM (15:19)
--- NOTE | 2025-09-16 15:36 | PC.NURSE ---
Pt. was going to get the Invega inj and did not want it. Pt. raised his voice and began arguing with the COMMERCIAL REAL ESTATE ATTORNEY on north side. Security was called down and pt. argued with home security professional saying this was all cleared in the BOP. Pt. did sit on the bed and get the injection, but voiced how upset he was about it.
--- NOTE | 2025-09-16 16:43 | PC.NURSE ---
OT came down and said they could not see him until he saw a orthopedic Dr. Dr. Rosario informed and said he will put in an order to consult ortho in the morning.
[2025-09-16] MEDS: paliperidone ER 6 mg Tablet PO (20:41)
[2025-09-16 21:11] VITALS: BP 131/74; PULSE 112; RESP 19; TEMP 36.9; O2SAT 94
[2025-09-17 06:00] VITALS: BP 128/84; PULSE 95; RESP 18; TEMP 36.5; O2SAT 95
[2025-09-17] MEDS: divalproex ER 250 mg Tablet (24H) 750 MG PO (08:02)
[2025-09-17 14:00] VITALS: BP 122/84; PULSE 100; RESP 16; TEMP 36.8; O2SAT 94
--- NOTE | 2025-09-17 14:34 | P.NPUPN_ITS ---
Subjective NPU 2 Subjective: 49-year-old male currently on a 21-day h old admitted with psychosis with history of schizophrenia. The patient had resisted but eventually received the Invega sustain a 234 mg shot on 09/16/2025. He had reported that he was doing fine. He reported that he had no desire to try to get his gun back from authorities. He reported that he still plans on going back to the [facility] area to try to convince the government that those charges against him had been dropped. 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 He had reported that he had managed his finances better. He had continued to report some shoulder pain. The patient had denied any thoughts of hurting himself or anyone else. He had acknowledged that he would likely not take these medications prescribed to him when he left the hospital but expressed interest in considering a monthly shot. He had continued to minimize any side effects from his medication. Mental Status Exam 2 MSE Comments: This is an overweight versus obese white male in the hospital scrubs with limited grooming and fair eye contact. There was still some mild psychomotor slowing today. He was cooperative with exam in mild distress. His speech was normal in rate and volume. Mood described as okay. His affect remained blunted. Thought process was linear and organized. Thought content: Patient did not report suicidal or homicidal ideation. There was continued evidence of delusional thinking and he did not appear to be responding to internal stimuli. There remained significant ideas of reference. He was busy writing excessively on paper. Attention and concentration were intact and memory was unreliable but none were formally tested. He is alert and oriented x person and place and time. Insight was poor. His judgment was limited. His impulse control appeared better. Vitals/I&O/Wt Last Vital Signs Temp 98.3 F 09/17/25 14:00 Pulse 100 09/17/25 14:00 Resp 16 09/17/25 14:00 BP 122/84 09/17/25 14:00 Pulse Ox 94 09/17/25 14:00 O2 Del Method Room Air 09/17/25 14:00 Data NPU 08/25/25 16:36 08/25/25 16:36 A&P Assessment and plan 1. Schizophrenia, acute: 2. Acute psychosis: 3. Closed fracture of left proximal humerus: 4. Paranoia: Plan: This is a 49-year-old white male who presents unknown to [facility] psychiatry and reports his only mental health treatment for his account [place] [facility] and he did not feel that this was accurate. He was hospitalized on a 96 hour hold secondary to reports of psychosis and paranoia and concern for him trying to procure a gun. 1. Continue Invega 6mg daily with plan for Invega sustenna 234mg IM today. Increase Depakote ER 1000mg in am as mood stabilizer. Reduce cogentin to .5mg bid. Invega sustenna 234mg IM given on 09/16/25. 2. Encourage individual, group and milieu therapies. 3. Continue every 15 minute checks for safety. 4. Obtain collateral information. 5. Patient placed on 21-day hold. 6. Will contact orthopedics about shoulder injury. PDMP PDMP Reviewed: Not Reviewed Involuntary Hold Information 2 Hold Status: Legal Status: 21 Day Hold Date/Time Hold Expires: 09/24/2025 Attestations NPU 2 Medical Necessity Statement*: Inpatient hospitalization is medically necessary and the clinically appropriate intervention at this time. We will monitor/initiate medications and make changes as indicated. The patient 's likely length of stay 5-7 days. Coding Level of Care Code Acute Code for [facility] Fw Diagnoses Schizophrenia, acute F23 Acute psychosis F23 Closed fracture of left proximal humerus S42A Paranoia F22
--- NOTE | 2025-09-17 15:53 | PC.NURSE ---
PT called saying they could not see pt. until pt. was cleared by an ortho Dr. Dr. Rosario was informed of what PT said. Dr. Rosario said he would call ortho.
[2025-09-17] MEDS: paliperidone ER 6 mg Tablet PO (19:41)
[2025-09-17 19:57] VITALS: BP 139/91; PULSE 102; RESP 19; TEMP 36.6; O2SAT 94
[2025-09-18 06:00] VITALS: BP 133/75; PULSE 108; RESP 18; TEMP 36.4; O2SAT 93
[2025-09-18] MEDS: divalproex ER 500 mg Tablet (24H) 1000 MG PO (09:19)
[2025-09-18 14:00] VITALS: BP 129/78; PULSE 108; RESP 18; TEMP 36.6; O2SAT 97
--- NOTE | 2025-09-18 15:01 | P.NPUPN_ITS ---
Subjective NPU 2 Subjective: 49-year-old male currently on a 21-day h old admitted with psychosis with history of schizophrenia. The patient had resisted but eventually received the Invega sustenna 234 mg IM on 09/16/2025. He reported no left-sided shoulder pain. He had continued to isolate himself on the milieu. He had reported that he did not have any thoughts of obtaining his handgun again. He reported that he felt better. 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 He had continued to state though that his concern over his father faking his deaths remained a legitimate problem for him. He had reported no feelings of hopelessness currently. He had appeared less irritable on the milieu. He denied any depressed mood at this time. Mental Status Exam 2 MSE Comments: This is an overweight versus obese white male in the hospital scrubs with limited grooming and fair eye contact. There was still some mild psychomotor slowing today. He was cooperative with exam in mild distress. His speech was normal in rate and volume. Mood described as allright. His affect remained blunted. Thought process was linear and organized. Thought content: Patient did not report suicidal or homicidal ideation. There was continued evidence of delusional thinking and he did not appear to be responding to internal stimuli. There remained significant ideas of reference and some overvalued ideas. Attention and concentration were intact and memory was unreliable but none were formally tested. He is alert and oriented x person and place and time. Insight was poor. His judgment was limited. His impulse control appeared better. Vitals/I&O/Wt Last Vital Signs Temp 97.9 F 09/18/25 14:00 Pulse 108 H 09/18/25 14:00 Resp 18 09/18/25 14:00 BP 129/78 09/18/25 14:00 Pulse Ox 97 09/18/25 14:00 O2 Del Method Room Air 09/18/25 14:00 Data NPU 08/25/25 16:36 08/25/25 16:36 A&P Assessment and plan 1. Schizophrenia, acute: 2. Acute psychosis: 3. Closed fracture of left proximal humerus: 4. Paranoia: Plan: This is a 49-year-old white male who presents unknown to [facility] psychiatry and reports his only mental health treatment for his account [place] [facility] and he did not feel that this was accurate. He was hospitalized on a 96 hour hold secondary to reports of psychosis and paranoia and concern for him trying to procure a gun. 1. Continue Invega 6mg daily with plan for Invega sustenna 234mg IM today. Continue Depakote ER 1000mg in am as mood stabilizer. Reduce cogentin to .5mg bid. Invega sustenna 234mg IM given on 09/16/25. Invega sustenna 156mg on 09/21/25. 2. Encourage individual, group and milieu therapies. 3. Continue every 15 minute checks for safety. 4. Obtain collateral information. 5. Patient placed on 21-day hold. 6. Will contact orthopedics about shoulder injury. PDMP PDMP Reviewed: Not Reviewed Involuntary Hold Information 2 Hold Status: Legal Status: 21 Day Hold Date/Time Hold Expires: 09/24/2025 Attestations NPU 2 Medical Necessity Statement*: Inpatient hospitalization is medically necessary and the clinically appropriate intervention at this time. We will monitor/initiate medications and make changes as indicated. The patient 's likely length of stay 5-7 days. Coding Level of Care Code Acute Code for [facility] Fwd Diagnoses Schizophrenia, acute F23 Acute psychosis F23 Closed fracture of left proximal humerus S42.A Paranoia F22
[2025-09-18 20:11] VITALS: BP 136/87; PULSE 111; RESP 18; TEMP 36.4; O2SAT 94
[2025-09-18] MEDS: paliperidone ER 6 mg Tablet PO (20:50)
[2025-09-19 05:46] VITALS: BP 126/89; PULSE 88; RESP 19; TEMP 36.8; O2SAT 96
[2025-09-19] MEDS: divalproex ER 500 mg Tablet (24H) 1000 MG PO (08:15)
--- NOTE | 2025-09-19 13:18 | P.NPUPN_ITS ---
Subjective NPU 2 Subjective: 49-year-old male currently on a 21-day h old admitted with psychosis with history of schizophrenia. The patient had resisted but eventually received the Invega sustenna 234 mg IM on 09/16/2025. He reported no left-sided shoulder pain. He had continued to isolate himself on the milieu. He had reported that he did not have any thoughts of obtaining his handgun again. He reported that he felt better. 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 He had continued to state though that his concern over his father faking his deaths remained a legitimate problem for him. He had reported no feelings of hopelessness currently. He had appeared less irritable on the milieu. He denied any depressed mood at this time. Mental Status Exam 2 MSE Comments: This is an overweight versus obese white male in the hospital scrubs with limited grooming and fair eye contact. There was still some mild psychomotor slowing today. He was cooperative with exam in mild distress. His speech was normal in rate and volume. Mood described as okay. His affect remained blunted. Thought process was linear and organized. Thought content: Patient did not report suicidal or homicidal ideation. There was continued evidence of delusional thinking and he did not appear to be responding to internal stimuli. There remained significant ideas of reference and some overvalued ideas. Attention and concentration were intact and memory was unreliable but none were formally tested. He is alert and oriented x person and place and time. Insight was poor. His judgment was limited. His impulse control appeared better. Vitals/I&O/Wt Last Vital Signs Temp 98.3 F 09/19/25 05:46 Pulse 88 09/19/25 05:46 Resp 19 H 09/19/25 05:46 BP 126/89 09/19/25 05:46 Pulse Ox 96 09/19/25 05:46 O2 Del Method Room Air 09/18/25 20:11 Data NPU 08/25/25 16:36 08/25/25 16:36 A&P Assessment and plan 1. Schizophrenia, acute: 2. Acute psychosis: 3. Closed fracture of left proximal humerus: 4. Paranoia: Plan: This is a 49-year-old white male who presents unknown to [facility] psychiatry and reports his only mental health treatment for his account [place] [facility] and he did not feel that this was accurate. He was hospitalized on a 96 hour hold secondary to reports of psychosis and paranoia and concern for him trying to procure a gun. 1. Continue Invega 6mg daily with plan for Invega sustenna 234mg IM today. Continue Depakote ER 1000mg in am as mood stabilizer. Reduce cogentin to .5mg bid. Invega sustenna 234mg IM given on 09/16/25. Invega sustenna 156mg on 09/21/25. 2. Encourage individual, group and milieu therapies. 3. Continue every 15 minute checks for safety. 4. Obtain collateral information. 5. Patient placed on 21-day hold. 6. Spoke with Dr. Teressa WATSON, orthopedist, and reviewed x-ray, he recommended scheduling with orthopedics outpatient follow up on discharge. 7. CMP, CBC with diff and trough depakote level on 09/21/25. PDMP PDMP Reviewed: Not Reviewed Involuntary Hold Information 2 Hold Status: Legal Status: 21 Day Hold Date/Time Hold Expires: 09/24/2025 Attestations NPU 2 Medical Necessity Statement*: Inpatient hospitalization is medically necessary and the clinically appropriate intervention at this time. We will monitor/initiate medications and make changes as indicated. The patient 's likely length of stay 5-7 days. Coding Level of Care Code Acute Code for [facility] Diagnoses Schizophrenia, acute F23 Acute psychosis F23 Closed fracture of left proximal humerus S42.A Paranoia F22
[2025-09-19 14:00] VITALS: BP 157/96; PULSE 103; RESP 16; TEMP 37; O2SAT 98
[2025-09-19] MEDS: paliperidone ER 6 mg Tablet PO (20:39)
[2025-09-19 21:47] VITALS: BP 120/79; PULSE 121; RESP 19; TEMP 37.2; O2SAT 98
[2025-09-20 06:00] VITALS: BP 123/77; PULSE 100; RESP 17; TEMP 37.2; O2SAT 95
[2025-09-20] MEDS: divalproex ER 500 mg Tablet (24H) 1000 MG PO (07:49)
[2025-09-20 14:00] VITALS: BP 125/82; PULSE 108; RESP 18; TEMP 36.7; O2SAT 95
--- NOTE | 2025-09-20 14:23 | P.NPUPN_ITS ---
Subjective NPU 2 Subjective: Patient presented today reporting that things are going okay. We discussed the fact that the 90-day hold paper was filed and that by definition consideration for that has to be done 4 days in advance of the date that would iva the . And that this is not an in diet meant of whether or not discharge is pending but a insurance in the event that discharge would not be appropriate. We discussed that at this point we are leaning towards him discharging at the beginning of the week so not to get discouraged. He reports the medication is going fine and he denied any side effects to the medication. He did identify that he would be able to return to his RV and that that was his plan. Mental Status Exam 2 MSE Comments: This is an overweight versus obese white male in the hospital scrubs with limited grooming and fair eye contact. There was still some mild psychomotor slowing today. He was cooperative with exam in mild distress. His speech was normal in rate and volume. Mood described as okay. His affect remained blunted. Thought process was linear and organized. Thought content: Patient did not report suicidal or homicidal ideation. There was continued evidence of delusional thinking and he did not appear to be responding to internal stimuli. There remained significant ideas of reference and some overvalued ideas. Attention and concentration were intact and memory was unreliable but none were formally tested. He is alert and oriented x person and place and time. Insight was poor. His judgment was limited. His impulse control appeared better. Vitals/I&O/Wt Last Vital Signs Temp 99.0 F 09/20/25 06:00 Pulse 100 09/20/25 06:00 Resp 17 09/20/25 06:00 BP 123/77 09/20/25 06:00 Pulse Ox 95 09/20/25 06:00 O2 Del Method Room Air 09/20/25 06:00 Data NPU 08/25/25 16:36 08/25/25 16:36 A&P Assessment and plan 1. Schizophrenia, acute: 2. Acute psychosis: 3. Closed fracture of left proximal humerus: 4. Paranoia: Plan: This is a 49-year-old white male who presents unknown to [facility] psychiatry and reports his only mental health treatment for his account [place] [facility] and he did not feel that this was accurate. He was hospitalized on a 96 hour hold secondary to reports of psychosis and paranoia and concern for him trying to procure a gun. 1. Continue Invega 6mg daily with plan for Invega sustenna 234mg IM today. Continue Depakote ER 1000mg in am as mood stabilizer. Reduce cogentin to .5mg bid. Invega sustenna 234mg IM given on 09/16/25. Invega sustenna 156mg on 09/21/25. Plan on Invega Sustenna injection tomorrow. 2. Encourage individual, group and milieu therapies. 3. Continue every 15 minute checks for safety. 4. Obtain collateral information. 5. Patient placed on 21-day hold. 6. Spoke with Dr. Teressa WATSON, orthopedist, and reviewed x-ray, he recommended scheduling with orthopedics outpatient follow up on discharge. 7. CMP, CBC with diff and trough depakote level on 09/21/25. Ensure labs are drawn tomorrow. PDMP PDMP Reviewed: Not Reviewed Involuntary Hold Information 2 Hold Status: Legal Status: 21 Day Hold Date/Time Hold Expires: 09/24/2025 Attestations NPU 2 Medical Necessity Statement*: Inpatient hospitalization is medically necessary and the clinically appropriate intervention at this time. We will monitor/initiate medications and make changes as indicated. The patient 's likely length of stay 3-5 days. Coding Level of Care Code Acute Code for [facility] Fw Diagnoses Schizophrenia, acute F23 Acute psychosis F23 Closed fracture of left proximal humerus S42. Paranoia F22
[2025-09-20] MEDS: paliperidone ER 6 mg Tablet PO (20:06)
[2025-09-20 20:55] VITALS: BP 106/75; PULSE 109; RESP 18; TEMP 36.7; O2SAT 94
[2025-09-21 06:00] VITALS: BP 116/74; PULSE 102; RESP 17; TEMP 36.4; O2SAT 95
[2025-09-21] MEDS: divalproex ER 500 mg Tablet (24H) 1000 MG PO (07:51)
[2025-09-21 08:50] LABS: Hematocrit 47.1 % (37-53); Hemoglobin 15.50 g/dL (11.27-16.99); Mean Corpuscular HGB Conc 32.9 g/dL (30-55); Mean Corpuscular Hemoglobin 29.9 pg (27-33); Mean Corpuscular Volume 90.9 fl (82-101); Nucleated Red Blood Cells % 0 %; Platelet Count 279 10^3/cmm (157-399); Red Blood Count 5.18 10^6/uL (3.85-5.65); White Blood Count 6.92 10^3/uL (3.29-11.43)
[2025-09-21 09:11] LABS: Alanine Aminotransferase 42 U/L (0-41); Albumin Level 4.1 g/dL (3.5-5.2); Alkaline Phosphatase 76 U/L (40-130); Aspartate Amino Transferase 31 U/L (0-40); Globulin 2.9 g/dL (1.3-4.6); Total Protein 7.0 g/dL (6.6-8.7)
[2025-09-21] MEDS: paliperidone palmitate 156 mg Syringe IM (12:31)
--- NOTE | 2025-09-21 12:34 | PC.NURSE ---
Invega injection given today as ordered.
[2025-09-21 14:33] VITALS: BP 140/92; PULSE 110; RESP 20; TEMP 36.7; O2SAT 96
--- NOTE | 2025-09-21 15:34 | P.NPUPN_ITS ---
Subjective NPU 2 Subjective: Patient presented today reporting that he was having concerns about how he was going up manage the medication and the injections. We discussed the risks, benefits and alternatives of discontinuing the oral medication now that he is gotten the second shot and he understood and agreed to proceed as is documented in this note. He denied any other side effects to his medication other than reporting tiredness. Mental Status Exam 2 MSE Comments: This is an overweight versus obese white male in the hospital scrubs with limited grooming and fair eye contact. There was still some mild psychomotor slowing today. He was cooperative with exam in mild distress. His speech was normal in rate and volume. Mood described as okay. His affect remained blunted. Thought process was linear and organized. Thought content: Patient did not report suicidal or homicidal ideation. There was continued evidence of delusional thinking and he did not appear to be responding to internal stimuli. There remained significant ideas of reference and some overvalued ideas. Attention and concentration were intact and memory was unreliable but none were formally tested. He is alert and oriented x person and place and time. Insight was poor. His judgment was limited. His impulse control appeared better. Vitals/I&O/Wt Last Vital Signs Temp 98.0 F 09/21/25 14:33 Pulse 110 H 09/21/25 14:33 Resp 20 H 09/21/25 14:33 BP 140/92 09/21/25 14:33 Pulse Ox 96 09/21/25 14:33 O2 Del Method Room Air 09/21/25 06:00 Data NPU 09/21/25 08:39 08/25/25 16:36 A&P Assessment and plan 1. Schizophrenia, acute: 2. Acute psychosis: 3. Closed fracture of left proximal humerus: 4. Paranoia: Plan: This is a 49-year-old white male who presents unknown to [facility] psychiatry and reports his only mental health treatment for his account was [place] [facility] [employer] and he did not feel that this was accurate. He was hospitalized on a 96 hour hold secondary to reports of psychosis and paranoia and concern for him trying to procure a gun. 1. Continue Invega 6mg daily with plan for Invega sustenna 234mg IM today. Continue Depakote ER 1000mg in am as mood stabilizer. Reduce cogentin to .5mg bid. Invega sustenna 234mg IM given on 09/16/25. Invega sustenna 156mg on 09/21/25. Plan on Invega Sustenna injection tomorrow. Discontinue oral Invega tonight. 2. Encourage individual, group and milieu therapies. 3. Continue every 15 minute checks for safety. 4. Obtain collateral information. 5. Patient placed on 21-day hold. 6. Spoke with Dr. Teressa WATSON, orthopedist, and reviewed x-ray, he recommended scheduling with orthopedics outpatient follow up on discharge. 7. CMP, CBC with diff and trough depakote level on 09/21/25. Ensure labs are drawn tomorrow. PDMP PDMP Reviewed: Not Reviewed Involuntary Hold Information 2 Hold Status: Legal Status: 21 Day Hold Date/Time Hold Expires: 09/24/2025 Attestations NPU 2 Medical Necessity Statement*: Inpatient hospitalization is medically necessary and the clinically appropriate intervention at this time. We will monitor/initiate medications and make changes as indicated. The patient 's likely length of stay 2-4 days. Coding Level of Care Code Acute Code for [facility] Fwd Diagnoses Schizophrenia, acute F23 Acute psychosis F23 Closed fracture of left proximal humerus S4 Paranoia F22
[2025-09-21 20:18] VITALS: BP 138/93; PULSE 92; RESP 16; O2SAT 96
[2025-09-21] MEDS: paliperidone ER 6 mg Tablet PO (20:33)
--- NOTE | 2025-09-21 22:45 | PC.NURSE ---
Jorge approached nursing @ et stated that the doctor wanted me to tell you we can skip the night time medicine tonight . He is scheduled for invega, et when asked, he said, yes the invega . However, a few minutes later, he took it, when ns informed him that it needed to not be missed that way.
[2025-09-22 05:22] VITALS: BP 124/89; PULSE 101; RESP 18; TEMP 36.3; O2SAT 95
[2025-09-22] MEDS: divalproex ER 500 mg Tablet (24H) 1000 MG PO (08:00)
[2025-09-22 14:00] VITALS: BP 128/89; PULSE 102; RESP 16; TEMP 36.8; O2SAT 95
--- NOTE | 2025-09-22 17:23 | P.NPUPN_ITS ---
Subjective NPU 2 Subjective: Patient presented today breathing okay. He reported doing fine with the discontinuation of the Invega oral. We discussed working with the social work team tomorrow to make sure that he can get his next injection on time without lapse as it will be the primary medication with no oral cross coverage at this point. He endorsed a willingness to follow through with treatment and was not reporting any mild or problematic thoughts at this time. We discussed the tentative plan for discharge tomorrow if all things can be put in place. We discussed the plan to not do the 90-day hold hearing. 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 He denied any side effects of his medication. Mental Status Exam 2 MSE Comments: This is an overweight versus obese white male in the hospital scrubs with limited grooming and fair eye contact. There was still some mild psychomotor slowing today. He was cooperative with exam in mild distress. His speech was normal in rate and volume. Mood described as okay. His affect remained blunted. Thought process was linear and organized. Thought content: Patient did not report suicidal or homicidal ideation. There was continued evidence of delusional thinking though not as prominent and he did not appear to be responding to internal stimuli. There remained significant ideas of reference and some overvalued ideas. Attention and concentration were intact and memory was unreliable but none were formally tested. He is alert and oriented x person and place and time. Insight was poor. His judgment was limited. His impulse control appeared better. Vitals/I&O/Wt Last Vital Signs Temp 97.8 F 09/22/25 20:54 Pulse 103 H 09/22/25 20:54 Resp 17 09/22/25 20:54 BP 141/91 09/22/25 20:54 Pulse Ox 97 09/22/25 20:54 O2 Del Method Room Air 09/22/25 20:54 Weight last 48 hrs Weight 110.495 kg Data NPU 09/21/25 08:39 08/25/25 16:36 A&P Assessment and plan 1. Schizophrenia, acute: 2. Acute psychosis: 3. Closed fracture of left proximal humerus: 4. Paranoia: Plan: This is a 49-year-old white male who presents unknown to [facility] psychiatry and reports his only mental health treatment for his account was in the [facility] and he did not feel that this was accurate. He was hospitalized on a 96 hour hold secondary to reports of psychosis and paranoia and concern for him trying to procure a gun. 1. Continue Invega 6mg daily with plan for Invega sustenna 234mg IM today. Continue Depakote ER 1000mg in am as mood stabilizer. Reduce cogentin to .5mg bid. Invega sustenna 234mg IM given on 09/16/25. Invega sustenna 156mg on 09/21/25. Plan on Invega Sustenna injection tomorrow. Discontinued oral Invega. 2. Encourage individual, group and milieu therapies. 3. Continue every 15 minute checks for safety. 4. Obtain collateral information. 5. Patient placed on 21-day hold. 6. Spoke with Dr. Teressa WATSON, orthopedist, and reviewed x-ray, he recommended scheduling with orthopedics outpatient follow up on discharge. 7. CMP, CBC with diff and trough depakote level on 09/21/25. Ensure labs are drawn tomorrow. PDMP PDMP Reviewed: Not Reviewed Involuntary Hold Information 2 Hold Status: Legal Status: 21 Day Hold Date/Time Hold Expires: 09/24/2025 Attestations NPU 2 Medical Necessity Statement*: Inpatient hospitalization is medically necessary and the clinically appropriate intervention at this time. We will monitor/initiate medications and make changes as indicated. The patient 's likely length of stay 1-3 days. Coding Level of Care Code Acute Code for g Fwd Diagnoses Schizophrenia, acute F23 Acute psychosis F23 Closed fracture of left proximal humerus S42.A Paranoia F22
[2025-09-22 20:54] VITALS: BP 141/91; PULSE 103; RESP 17; TEMP 36.6; O2SAT 97
[2025-09-23 06:00] VITALS: BP 119/78; PULSE 111; RESP 17; TEMP 37.1; O2SAT 94
[2025-09-23] MEDS: divalproex ER 500 mg Tablet (24H) 1000 MG PO (08:26)
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
--- NOTE | 2025-09-23 12:18 | PC.PT ---
Still no ortho consult in chart
[2025-09-23 12:23] VITALS: BP 131/83; PULSE 124; RESP 18; TEMP 36.4; O2SAT 95
--- NOTE | 2025-09-23 12:57 | ECG_ITS ---
[facility] 2025-[facility]23 Pat Name: Jorge Caceres Department: Room: 125 Gender: Male Care Professional: : 1975 Requested By: Lit Santoro Order Number: [id number] Renteria MD: Bob Guardado M.D. Measurements Intervals [place] Rate: 109 P: 61 ID: [id number] QRS: 54 QRSD: 105 T: 45 QT: 327 QTc: 442 Interpretive Statements SINUS TACHYCARDIA POSSIBLE INFERIOR MYOCARDIAL INFARCTION , PROBABLY OLD [30 ms Q WAVE IN II/aVF] ABNORMAL RHYTHM ECG No previous ECG available for comparison Electronically Signed On 09-24-2025 22:27:40 LACE ROLLER by Bob Guardado M.D. [email or web address] [id number]
[2025-09-23 14:00] VITALS: BP 131/82; PULSE 119; RESP 16; TEMP 36.6; O2SAT 97
--- NOTE | 2025-09-23 15:07 | PC.NURSE ---
Verbal order given by Dr. Santoro to this staff memeber to call in to pharmacy Metoprolol XL 25mg daily for 30 days with one refill, also to start first dose now. Then to have primary appointment with in next 7 days set up for pt. pt Heart rate is running [id number], EKG performed shows sinus tachycardia with old infarction. pt to be discharged today. notified Remanufacturing Technician about making primary appointment.
[2025-09-23] MEDS: metoprolol succinate ER (24 HR) 25 mg Tablet PO (15:26)
[2025-09-23 15:32] VITALS: BP 138/92; PULSE 117; RESP 18; O2SAT 95
[2025-09-23 16:52] VITALS: BP 139/92; PULSE 106; RESP 18; O2SAT 97
[2025-09-23 16:53] VITALS: BP 139/92; PULSE 106; RESP 18; O2SAT 97
== END 2025-09-23 16:54 | disposition home or self-care (01) | DRG 885 ==
LOC: ER 17:02 → NP 17:52
PROVIDERS: Physician Assistant; Admitting Provider Psychiatry & Neurology Psychiatry; Emergency Provider Physician Assistant; Visit Provider Psychiatry & Neurology Psychiatry
DX: F23 Brief psychotic disorder (principal); S42.202A Unspecified fracture of upper end of left humerus, initial encounter for closed fracture; E66.9 Obesity, unspecified; Z68.35 Body mass index [BMI] 35.0-35.9, adult; X58.XXXA Exposure to other specified factors, initial encounter; Z81.8 Family history of other mental and behavioral disorders
CPT/HCPCS: 36415; 73060; 80053; 80076; 80164; 80306; 80307; 85025; 86592; 87798; 93005; 96372; 97150; 97165; 99285; J9999; Q0162

== ENCOUNTER → 2025-10-01 10:58 | Outpatient (BNVA) | payer OTHER, SELFPAY | PROVIDERS: PCP Family Medicine; Visit Provider Family Medicine | DX: A53.9 Syphilis, unspecified (principal) | CPT/HCPCS: 86592; 87491; 87591 ==

== ENCOUNTER 2025-10-07 11:34 | Outpatient (CLI) | payer OTHER, SELFPAY ==
[2025-10-08 12:44] LABS: RPR w(Moniotor) w/REFL Titer REACTIVE (NON-REACTIVE)
[2025-10-08 14:03] LABS: Chlamydia Trachomatis RNA TMA NOT DETECTED (NOT DETECTED); Neisseria Gonorrhoeae RNA, TMA NOT DETECTED (NOT DETECTED)
== END 2025-10-07 11:35 | disposition home or self-care (01) ==
LOC: LAB 11:36
PROVIDERS: PCP Family Medicine; Visit Provider Family Medicine
DX: A53.9 Syphilis, unspecified (principal)
CPT/HCPCS: 36415; 86592; 87491; 87591